=== PATIENT | female | born 1995 | race Caucasian/White ===

== ENCOUNTER 2017-06-13 05:58 | Emergency (ER) | payer BC ==
[~2017-06-13] VITALS: Ht 152.4 cm; Wt 60.3 kg
--- NOTE | 2017-06-13 06:05 | NUR ---
TO BED 6 IS A 22 YO FEMALE PATIENT BIBSELF C/O SUDDEN ONSET SHARP LEFT FLANK PAIN SINCE 4AM. PT DENIES HEMATURIA, +NAUSEA. NAD NOTED. VSS. NONDIAPHORETIC. COMFORT MEASURES PROVIDED. AWAITING FOR ER MD SY.
--- NOTE | 2017-06-13 06:26 | NUR ---
DR GONSALES AT BEDSIDE TO EVALUATE PATIENT.
[2017-06-13] MEDS ORDERED: IBUPROFEN 600 MG TABLET PO ONE (06:30)
[2017-06-13] MEDS ORDERED: IBUPROFEN 400 MG TABLET PO ONE (06:30)
[2017-06-13 06:41] LABS: APPEARANCE,URINE CLOUDY (CLEAR); BILIRUBIN,URINE NEGATIVE (NEGATIVE); BLOOD, URINE 3+ Ery/uL (NEGATIVE); COLOR,URINE YELLOW (YELLOW); KETONES,URINE NEGATIVE (NEGATIVE); LEUKOCYTE ESTERASE ,URINE NEGATIVE (NEGATIVE); NITRITE, URINE NEGATIVE (NEGATIVE); PROTEIN,URINE TRACE mg/dl (NEGATIVE); UGLUCOSE NEGATIVE (NEGATIVE); UROBILINOGEN,URINE 0.2 EU/dL (0.2)
[2017-06-13] MEDS ORDERED: ONDANSETRON 4 MG TAB.RAPDIS ONE (06:49)
--- NOTE | 2017-06-13 06:51 | NUR ---
PATIENT TAKEN TO RADIOLOGY.
[2017-06-13] MEDS ORDERED: ONDANSETRON 4 MG TAB.RAPDIS SL ONE (07:00)
[2017-06-13 07:04] LABS: BACTERIA,URINE Rare /HPF (None Seen); RBC,URINE TOO NUMEROUS TO COUN /HPF (0-2); SQUAMOUS EPITHELIAL CELL,UR Few /HPF (None Seen); WBC,URINE 0-2 /HPF (0-3)
[2017-06-13] MEDS ORDERED: KETOROLAC TROMETHAMINE INJ 30 MG/ML VIAL ONE (07:20)
--- NOTE | 2017-06-13 07:24 | NUR ---
PATIENT WAS TAKEN TO CT
[2017-06-13] MEDS ORDERED: IV NS 0.9% 1,000 ML BAG IV ONE (07:30)
[2017-06-13] MEDS ORDERED: KETOROLAC TROMETHAMINE INJ 30 MG/ML VIAL IV ONE (07:30)
[2017-06-13 08:04] LABS: CALCIUM, SERUM 9.4 mg/dL (8.5-10.1); CREATININE 0.9 mg/dL (0.6-1.3); POTASSIUM 3.9 mmol/L (3.5-5.1)
[2017-06-13 08:17] LABS: BASOPHILS % (AUTO) 0.4 % (0.0-2.0); EOSINOPHILS % (AUTO) 0.4 % (0.0-6.0); HEMATOCRIT 39 % (33-45); HEMOGLOBIN 13.2 g/dL (11.5-14.8); LYMPHOCYTES # (AUTO) 1.3 /CMM (0.8-4.8); LYMPHOCYTES % (AUTO) 11.4 % (20.0-44.0); MEAN CORPUSCULAR HEMOGLOBIN 29 PG (26.0-33.0); MEAN CORPUSCULAR HGB CONC 34 g/dl (31.0-36.0); MEAN CORPUSCULAR VOLUME 87 fL (82-100); MONOCYTES # (AUTO) 0.6 /CMM (0.1-1.30); MONOCYTES % (AUTO) 5.5 % (2.0-12.0); NEUTROPHILS # (AUTO) 9.2 /CMM (1.8-8.9); NEUTROPHILS % (AUTO) 82.3 % (43.0-81.0); PLATELET COUNT (AUTO) 300 /CMM (150-450); RDW COEFFICIENT OF VARIATION 11.9 (11.5-15.0); RED BLOOD CELL COUNT(AUTO) 4.53 MIL/uL (4.0-5.2); WHITE BLOOD COUNT (AUTO) 11.2 K/uL (4.3-11.0)
[2017-06-13 08:55] VITALS: BP 105/69
== END 2017-06-13 08:55 | disposition home or self-care (01) ==
LOC: ER 05:58
DX: N20.0 Calculus of kidney (principal); Z88.8 Allergy status to other drugs, medicaments and biological substances
CPT/HCPCS: 36415; 72110-TC; 80048-TC; 81000-TC; 84703-TC; 85025-TC; A4606; J1885; J7030; Q0162; Z7610